=== PATIENT | male | born 2000 | race Caucasian/White ===

== ENCOUNTER 2021-09-23 15:33 | Emergency (ER) | payer OTHER ==
[~2021-09-23] VITALS: Ht 180.3 cm; Wt 82.6 kg
[2021-09-23 16:22] VITALS: BP 117/67
--- NOTE | 2021-09-23 16:22 | NUR ---
21 y/o male, c/o epigastric pain with nausea and vomiting with dark red blood in emesis started this morning. states this happened a few weeks ago. denies constipation or diarrhea, dysuria, hematuria, black stool, blood in stool. 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 states he no longer takes that medication. denies any frequent drinking. marijuana use daily. pmh: denies nka med: denies
--- NOTE | 2021-09-23 16:28 | NUR ---
pt gave urine sample at this time, returned to lobby
[2021-09-23] MEDS ORDERED: ONDANSETRON 4 MG ODT PO ONE (16:40)
[2021-09-23] MEDS ORDERED: ALUMINUM HYD/MAG/SIMETHICONE 30 ML UDC PO ONE (16:40)
[2021-09-23] MEDS ORDERED: FAMOTIDINE 20 MG TAB PO ONE (16:40)
--- NOTE | 2021-09-23 16:45 | NUR ---
urine in dirty utility
[2021-09-23 17:02] LABS: BASOPHILS # (AUTO) 0.1 K/uL (0.00-0.22); BASOPHILS % (AUTO) 1.2 % (0.0-2.0); EOSINOPHILS # (AUTO) 0.1 K/uL (0-0.4); EOSINOPHILS % (AUTO) 1.4 % (0.0-4.0); HEMATOCRIT 41.8 % (36-52); HEMOGLOBIN 13.9 g/dL (12.0-18.0); LYMPHOCYTES # (AUTO) 1.6 K/uL (2.0-11.5); LYMPHOCYTES % (AUTO) 25.9 % (20.5-51.1); MEAN CORPUSCULAR HEMOGLOBIN 28 pg (27-31); MEAN CORPUSCULAR HGB CONC 33 g/dL (33-37); MONOCYTES # (AUTO) 0.6 K/uL (0.8-1.0); MONOCYTES % (AUTO) 9.7 % (1.7-9.3); NEUTROPHILS # (AUTO) 3.7 K/uL (1.8-7.7); NEUTROPHILS % (AUTO) 61.8 % (42.2-75.2); PLATELET COUNT (AUTO) 147 K/uL (140-450); RED BLOOD CELL COUNT(AUTO) 5.04 MIL/uL (4.20-6.10); RED CELL DISTRIBUTION WIDTH 13.2 % (11.6-13.7); WHITE BLOOD COUNT (AUTO) 6.1 K/uL (4.8-10.8)
[2021-09-23 18:16] LABS: ALBUMIN 4.3 g/dL (3.4-5.0); CREATININE 0.8 mg/dL (0.6-1.3); POTASSIUM 3.8 mmol/L (3.5-5.1); TOTAL BILIRUBIN 0.4 mg/dL (0.0-1.0)
[2021-09-23 19:07] LABS: ANION GAP 16.2 (8-16); CARBON DIOXIDE 27.6 mmol/L (21-32)
[2021-09-23] MEDS ORDERED: FAMOTIDINE 20 MG TAB ONE ×2 (19:31→19:34)
[2021-09-23] MEDS ORDERED: ONDANSETRON 4 MG ODT ONE (19:31)
[2021-09-23] MEDS ORDERED: ALUMINUM HYD/MAG/SIMETHICONE 30 ML UDC ONE (19:31)
[2021-09-23] MEDS ORDERED: ONDA-188 SL (19:59)
[2021-09-23 20:00] VITALS: BP 117/67
--- NOTE | 2021-09-23 20:00 | NUR ---
Note reginaldana in EDM - 09/24/21 at [id number] by [email or web address] Patient discharged with v/s stable. Written and verbal after care instructions given and explained. Patient alert, oriented and verbalized understanding of instructions. Ambulatory with steady gait. All questions addressed prior to discharge. ID band removed. Patient advised to follow up with PMD. Rx of kimberley adkinst given. Patient educated on indication of medication including possible reaction and side effects. Opportunity to ask questions provided and answered.
--- NOTE | 2021-09-23 20:00 | NUR ---
Patient discharged without paperwork. Written and verbal after care instructions given and explained. Patient alert, oriented and verbalized understanding of instructions. Ambulatory with steady gait. Patient advised to follow up with PMD. Rx of zofran odt given.
== END 2021-09-23 20:00 | disposition home or self-care (01) ==
LOC: MED 15:33
DX: R11.10 Vomiting, unspecified (principal); F12.90 Cannabis use, unspecified, uncomplicated
CPT/HCPCS: 36415; 80053; 81002; 83690; 85025; 99284; Q0162